=== PATIENT | male | born 1995 | race African-American/Black ===

== ENCOUNTER 2019-01-26 15:47 | Emergency (ER) | payer MEDICAID ==
[~2019-01-26] VITALS: Ht 177.8 cm; Wt 82.0 kg
[2019-01-26 16:41] VITALS: BP 117/67
== END 2019-01-26 18:01 | disposition left against medical advice (07) ==
LOC: ER 17:19
DX: Z53.21 Procedure and treatment not carried out due to patient leaving prior to being seen by health care provider (principal)